=== PATIENT | female | born 1990 | race Caucasian/White ===

== ENCOUNTER 2016-11-01 17:18 | Outpatient (CLI) | payer OTHER ==
[~2016-11-01] VITALS: Ht 154.9 cm; Wt 54.7 kg
[~2016-11-01 17:18] MED LIST: PREN1TAB49
[2016-11-01 17:56] VITALS: BP 99/57; PULSE 88; RESP 18; Ht 154.9 cm; Wt 54.7 kg
[2016-11-01 19:39] LABS: BASOPHILS % 0.3 % (0.0-2.0); EOSINOPHILS # 0.1 10^3/ul (0.0-0.5); EOSINOPHILS % 0.8 % (0.0-7.0); HEMATOCRIT 31.7 % (37.0-47.0); HEMOGLOBIN 10.4 g/dl (12.0-16.0); LYMPHOCYTES # 1.8 10^3/ul (0.8-2.9); LYMPHOCYTES % 20.5 % (15.0-51.0); MEAN CORPUSCULAR HGB CONC 32.8 g/dl (32.0-37.0); MEAN CORPUSCULAR VOLUME 94.3 fl (82.0-101.0); MONOCYTE # 0.8 10^3/ul (0.3-0.9); MONOCYTES % 8.6 % (0.0-11.0); NEUTROPHIL # 6.1 10^3/ul (1.6-7.5); NEUTROPHILS % 69.2 % (39.0-77.0); PLATELET COUNT 253 10^3/UL (140-415); RED BLOOD COUNT 3.36 10^6/ul (4.20-5.40); WHITE BLOOD COUNT 8.8 10^3/ul (4.8-10.8)
--- NOTE | 2016-11-01 20:03 | RADRPT ---
PROCEDURE: US OB. CLINICAL INDICATION: Contractions. TECHNIQUE: Multiple sonographic images of the pelvis were obtained. Transabdominal imaging only wa s performed. The images were reviewed on a PACS workstation. COMPARISON: Exam dated 09/15/2015. FINDINGS: The cervix is closed with a length of 3.8 cm. There is a single viable intrauterine gestation. Cardiac activity is present with a heart rate of 1 46 bpm. There is a cephalic presentation. Measurements were made in order to determine age. The results are as follows: BPD = 5.9 cm HC = 20.88 cm AC = 19.47 cm FL = 4.03 cm Estimated gestational age of approximately 23 weeks 4 days. The estimated date of delivery is 02/24/2017. The EFW = 612.57 g, at the 37th percentile. The placenta is posterior, grade 2. There is no evidence for an abruption or placenta previa. There is a normal amount of amniotic fluid with a MVP of 7.1 cm. IMPRESSION: 1. Single viable intrauterine gestation of approximately 23 weeks 4 days. 2. The estimated date of delivery is 02/24/2017. RPTAT: HLBP .Kristopher Goncalves MD, Date Time Electronically viewed and signed by .Kristopher Goncalves MD, MD on 11/01/2016 20:03 .P/
[2016-11-01 20:11] LABS: ADD UMIC YES; UR ASCORBIC ACID 40 mg/dL (NEGATIVE); UR BILIRUBIN (Dip) NEGATIVE (NEGATIVE); UR BLOOD (Dip) NEGATIVE (NEGATIVE); UR CLARITY SLIGHTLY CLOUDY (CLEAR); UR COLOR YELLOW (YELLOW); UR GLUCOSE (Dip) NEGATIVE (NEGATIVE); UR KETONES (Dip) NEGATIVE (NEGATIVE); UR LEUKOCYTE ESTERASE (Dip) TRACE Leu/ul (NEGATIVE); UR MUCUS FEW /HPF (NONE SEEN); UR NITRITE (Dip) NEGATIVE (NEGATIVE); UR RBC 2 /HPF (0-5); UR SPECIFIC GRAVITY (Dip) 1.032 (1.003-1.030); UR SQUAMOUS EPITHELIAL CELL FEW /HPF (FEW); UR TOTAL PROTEIN (Dip) NEGATIVE (NEGATIVE); UR UROBILINOGEN (Dip) 1+ mg/dL (NEGATIVE)
--- NOTE | 2016-11-01 20:44 | PN ---
Triage Information Date/Time Reason for visit: Abd/pelvic pain Weeks of Gestation 23 weeks /Para Diabetes: none Hypertention: none Objective Vital Signs Date Time Temp Pulse Resp B/P Pulse Ox O2 Delivery O2 Flow Rate FiO2 11/01/16 17:56 98.0 88 18 99/57 98 Room Air Heart Rate: 120's Contractions: None Results/Medications Result Diagram: 11/01/16 1908 Results 24 hrs Laboratory Tests Test 11/01/16 18:50 11/01/16 19:08 Urine Color YELLOW Urine Clarity SLIGHTLY CLOUDY A Urine pH 5.0 Urine Specific [place] 1.032 H Urine Ketones NEGATIVE Urine Nitrite NEGATIVE Urine Bilirubin NEGATIVE Urine Urobilinogen 1+ H Urine Leukocyte Esterase TRACE A Urine Microscopic RBC 2 Urine Microscopic WBC 7 H Urine Squamous Epithelial Cells FEW Urine Mucus FEW A Urine Hemoglobin NEGATIVE Urine Glucose NEGATIVE Urine Total Protein NEGATIVE White Blood Count 8.8 Red Blood Count 3.36 L Hemoglobin 10.4 L Hematocrit 31.7 L Mean Corpuscular Volume 94.3 Mean Corpuscular Hemoglobin 31.0 Mean Corpuscular Hemoglobin Concent 32.8 Red Cell Distribution Width 13.0 Platelet Count 253 Mean Platelet Volume 9.0 # Neutrophils % 69.2 Lymphocytes % 20.5 Monocytes % 8.6 Eosinophils % 0.8 Basophils % 0.3 Nucleated Red Blood Cells % 0.0 Neutrophils # 6.1 Lymphocytes # 1.8 Monocytes # 0.8 Eosinophils # 0.1 Basophils # 0.0 Nucleated Red Blood Cells # 0.0 Imaging Results Cervical length normal Disposition: Discharge Assessment/Plan After rest patient feels better. D/C home. LIU MOE MD Nov 01, 2016 20:44
--- NOTE | 2016-11-01 20:47 | TRIAGE ---
OB Triage Datetime Report Generated by CPN: 11/01/2016 20:47 Datetime: 11/01/2016 19:02 Labor Evaluation Monitor Mode: External Resting Tone [place]: Relaxed Datetime: 11/01/2016 18:02 Labor Evaluation Monitor Mode: External Resting Tone [place]: Relaxed Datetime: 11/01/2016 17:51 Stage of : OB Triage EGA: 23.5 Maternal Assessment Level of Consciousness: Fully Conscious DTR's/Clonus: DTRs 2+; No Clonus Headache: Denies Blurred Vision: No Respiratory Effort: Unlabored; Regular Rhythm; Equal Expansion Breath Sounds, Left: Clear and Equal Breath Sounds, Right: Clear and Equal Nausea/Vomiting: Denies RUQ Epigastric Pain: Denies Lower Extremities Edema: None Degree: None Upper Extremities Edema: None Degree: None Facial Edema: None Temperature Route: Axillary Fall Risk Assessment History of Falling: (0) No Secondary Diagnosis: (0) No Ambulatory Aid: (0) Bedrest/Nurse Assist IV Therapy: (0) No Gait: (0) Normal/Bedrest/Immobile Mental Status: (0) Oriented to Own Ability Fall Score: 0 Fall Risk Score Definition: No Risk: No action required Comment: presented to [facility] complaining of lower abd pain and back apin and voiced that everytime her baby moves gives her pian on her umbilical area Labor Evaluation Monitor Mode: External Heart Rate FHR Baseline Rate: 150 Monitor Mode: External US Pain Assessment Pain Scale: 6 Pain Presence: Intermittent Pain Type: Cramping Pain Location: Abdomen Datetime: 11/01/2016 17:49 Time of Arrival: 11/01/2016 17:05 Arrived By: Ambulatory Arrived From: Home Chief Complaint: pain on lower abd and lowr back, pain on umbilical area when baby moves Movement: Present Contractions: Denies/Absent Time Contractions Began: 11/01/2016 10:00 Rupture of Membranes: Denies Vaginal Discharge: Denies Recent Sexual Intercouse: Denies Abdominal Trauma: Not Applicable Patient Complaints: None Time Provider Notified: 11/01/2016 18:25 Provider Notified: Delshmarcos Initial Plan: efm, OB US: EFW, CL, KATHRYN, CBC, UA Datetime: 11/01/2016 17:33 Heart Rate FHR Baseline Rate: 135 Monitor Mode: Doppler
== END 2016-11-01 20:45 | disposition home or self-care (01) ==
LOC: OBT 17:18 → L-D 17:20 → OBT 20:45
PROVIDERS: ATTEND Obstetrics & Gynecology
DX: O26.892 Other specified pregnancy related conditions, second trimester (principal); Z3A.23 23 weeks gestation of pregnancy; R10.2 Pelvic and perineal pain
CPT/HCPCS: 76815; 76817; 81001; 85025; G0463

== ENCOUNTER 2016-11-14 20:43 | Outpatient (CLI) | payer OTHER ==
[~2016-11-14] VITALS: Ht 154.9 cm; Wt 55.5 kg
[2016-11-14 22:07] VITALS: Ht 154.9 cm; Wt 55.5 kg
[2016-11-14 22:08] VITALS: BP 91/54; PULSE 75; RESP 18
--- NOTE | 2016-11-14 22:55 | RADRPT ---
PROCEDURE: CERVICAL LENGTH ULTRASOUND CLINICAL INDICATION: labor at 25-week gestational age. TECHNIQUE: Trans-vaginal imaging of the cervical canal was performed utilizing jaimes-scale imaging. Sagittal and transverse images were obtained. Trans-abdominal images were also obtained. The jovanni ges were reviewed on a PACS workstation. COMPARISON: None. FINDINGS: There is a single live intrauterine . There is no placenta previa. The cervix is closed with a length of 3.9 cm. IMPRESSION: 1. Cervical length is 3.9 cm. RPTAT: QQ .Maik Reeder MD, MD Date Time Electronically viewed and signed by .Maik Reeder MD, on 11/14/2016 22:55 .R/
[2016-11-14 23:15] LABS: BASOPHIL # 0.1 10^3/ul (0.0-0.1); BASOPHILS % 0.5 % (0.0-2.0); EOSINOPHILS # 0.1 10^3/ul (0.0-0.5); EOSINOPHILS % 1.2 % (0.0-7.0); HEMATOCRIT 33.2 % (37.0-47.0); HEMOGLOBIN 11.2 g/dl (12.0-16.0); LYMPHOCYTES # 2.4 10^3/ul (0.8-2.9); LYMPHOCYTES % 24.1 % (15.0-51.0); MEAN CORPUSCULAR HGB CONC 33.7 g/dl (32.0-37.0); MEAN CORPUSCULAR VOLUME 94.9 fl (82.0-101.0); MEAN PLATELET VOLUME 8.8 fl (7.4-10.4); MONOCYTE # 0.7 10^3/ul (0.3-0.9); MONOCYTES % 6.9 % (0.0-11.0); NEUTROPHIL # 6.8 10^3/ul (1.6-7.5); NEUTROPHILS % 66.9 % (39.0-77.0); PLATELET COUNT 212 10^3/UL (140-415); RED CELL DISTRIBUTION WIDTH 13.8 % (11.5-14.5); WHITE BLOOD COUNT 10.1 10^3/ul (4.8-10.8)
[2016-11-14 23:42] LABS: ADD UMIC YES; UR ASCORBIC ACID NEGATIVE (NEGATIVE); UR BILIRUBIN (Dip) NEGATIVE (NEGATIVE); UR BLOOD (Dip) NEGATIVE (NEGATIVE); UR CLARITY SLIGHTLY CLOUDY (CLEAR); UR COLOR YELLOW (YELLOW); UR GLUCOSE (Dip) NEGATIVE (NEGATIVE); UR KETONES (Dip) NEGATIVE (NEGATIVE); UR LEUKOCYTE ESTERASE (Dip) 1+ Leu/ul (NEGATIVE); UR NITRITE (Dip) NEGATIVE (NEGATIVE); UR RBC 1 /HPF (0-5); UR SPECIFIC GRAVITY (Dip) 1.015 (1.003-1.030); UR SQUAMOUS EPITHELIAL CELL FEW /HPF (FEW); UR TOTAL PROTEIN (Dip) NEGATIVE (NEGATIVE); UR UROBILINOGEN (Dip) NEGATIVE (NEGATIVE)
[2016-11-15 00:46] LABS: BARBITURATES Negative (NEGATIVE); BENZODIAZEPINES Negative (NEGATIVE); CANNABINOIDS Negative (NEGATIVE); COCAINE Negative (NEGATIVE); OPIATES Negative (NEGATIVE)
--- NOTE | 2016-11-15 01:02 | PN ---
Triage Information Date/Time Reason for visit: Abd/pelvic pain Weeks of Gestation 25 weeks /Para Diabetes: none Hypertention: none Objective Vital Signs Date Time Temp Pulse Resp B/P Pulse Ox O2 Delivery O2 Flow Rate FiO2 11/14/16 22:08 98.4 75 18 91/54 Room Air Heart Rate: 120's Heart Rate Comments Appropriate for GA Contractions: None Results/Medications Result Diagram: 11/14/16 2305 Results 24 hrs Laboratory Tests Test 11/14/16 21:30 11/14/16 23:05 Urine Color YELLOW Urine Clarity SLIGHTLY CLOUDY A Urine pH 7.0 Urine Specific [place] 1.015 Urine Ketones NEGATIVE Urine Nitrite NEGATIVE Urine Bilirubin NEGATIVE Urine Urobilinogen NEGATIVE Urine Leukocyte Esterase 1+ H Urine Microscopic RBC 1 Urine Microscopic WBC 3 Urine Squamous Epithelial Cells FEW Urine Hemoglobin NEGATIVE Urine Glucose NEGATIVE Urine Total Protein NEGATIVE Urine Opiates Screen Negative Urine Barbiturates Negative Urine Amphetamines Screen Negative Urine Benzodiazepines Screen Negative Urine Cocaine Screen Negative Urine Cannabinoids Negative White Blood Count 10.1 Red Blood Count 3.50 L Hemoglobin 11.2 L Hematocrit 33.2 L Mean Corpuscular Volume 94.9 Mean Corpuscular Hemoglobin 32.0 Mean Corpuscular Hemoglobin Concent 33.7 Red Cell Distribution Width 13.8 Platelet Count 212 Mean Platelet Volume 8.8 Neutrophils % 66.9 Lymphocytes % 24.1 Monocytes % 6.9 Eosinophils % 1.2 Basophils % 0.5 Nucleated Red Blood Cells % 0.0 Neutrophils # 6.8 Lymphocytes # 2.4 Monocytes # 0.7 Eosinophils # 0.1 Basophils # 0.1 Nucleated Red Blood Cells # 0.0 Imaging Results Cervical length normal Disposition: Discharge Assessment/Plan No sign of labor. LIU MOE MD Nov 15, 2016 01:02
--- NOTE | 2016-11-15 02:18 | TRIAGE ---
OB Triage Datetime Report Generated by CPN: 11/15/2016 02:18 Datetime: 11/15/2016 01:07 Stage of : OB Triage Labor Evaluation Frequency: 0 Monitor Mode: External Pattern: Normal: <= 5 Contractions in 10 Minutes Resting Tone [place]: Relaxed Datetime: 11/15/2016 01:02 Stage of : OB Triage Datetime: 11/15/2016 00:10 Stage of : OB Triage Labor Evaluation Frequency: X1 Monitor Mode: External Duration (sec)2399: 50 Quality: Mild Pattern: Normal: <= 5 Contractions in 10 Minutes Resting Tone [place]: Relaxed Heart Rate FHR Baseline Rate: 130 Monitor Mode: External US Variability: Moderate 6-25 bpm Accelerations: 15X15 Decelerations: None Category: Category I Pain Assessment Pain Scale: 7 Pain Presence: Constant Pain Type: Burning; Cramping Pain Location: Abdomen; Back Pain Goal: 3 Pain Relief Measures: Comfort Measures Datetime: 11/14/2016 23:10 Stage of : OB Triage Labor Evaluation Frequency: 0 Monitor Mode: External Pattern: Normal: <= 5 Contractions in 10 Minutes Resting Tone [place]: Relaxed Pain Assessment Pain Scale: 7 Pain Presence: Constant Pain Type: Burning; Cramping Pain Location: Abdomen; Back Pain Goal: 3 Pain Relief Measures: Comfort Measures Datetime: 11/14/2016 22:17 Assessment Type: Triage Maternal Assessment Level of Consciousness: Fully Conscious DTR's/Clonus: DTRs 2+; No Clonus Headache: Denies Blurred Vision: No Respiratory Effort: Unlabored; Regular Rhythm; Equal Expansion Nausea/Vomiting: Denies RUQ Epigastric Pain: Denies Lower Extremities Edema: None Upper Extremities Edema: None Facial Edema: None Fall Risk Assessment History of Falling: (0) No Secondary Diagnosis: (0) No Ambulatory Aid: (0) Bedrest/Nurse Assist IV Therapy: (0) No Gait: (0) Normal/Bedrest/Immobile Mental Status: (0) Oriented to Own Ability Fall Score: 0 Fall Risk Score Definition: No Risk: No action required Datetime: 11/14/2016 22:15 Time of Arrival: 11/14/2016 20:30 EGA: 25.4 Arrived By: Wheelchair Arrived From: Home Chief Complaint: ABD PAIN, BACK PAIN, PAIN ON URINATION, LOSING WEIGHT Movement: Present Rupture of Membranes: Denies Vaginal Discharge: Denies Recent Sexual Intercouse: Denies Patient Complaints: None Additional Patient Complaints: PT. IN [facility], STATED NOT FEEDING HER ENOUGH Time Provider Notified: 11/14/2016 22:11 Provider Notified: DELSHAD Initial Plan: CBC, UA, TOX SCREEN, CERVICAL LENGTH Datetime: 11/14/2016 22:10 Stage of : OB Triage Labor Evaluation Frequency: 0 Monitor Mode: External Pattern: Normal: <= 5 Contractions in 10 Minutes Resting Tone [place]: Relaxed Pain Assessment Pain Scale: 7 Pain Presence: Constant Pain Type: Burning; Cramping Pain Location: Abdomen; Back Pain Goal: 3 Pain Relief Measures: Comfort Measures Datetime: 11/14/2016 21:47 Monitor Mode: Doppler Datetime: 11/01/2016 20:00 Monitor Mode: External Resting Tone [place]: Relaxed Datetime: 11/01/2016 17:51 EGA: 23.5 Fall Score: 0 Fall Risk Score Definition: No Risk: No action required
== END 2016-11-15 01:17 | disposition home or self-care (01) ==
LOC: OBT 20:43 → L-D 20:46 → OBT 11-15 01:17
PROVIDERS: ATTEND Obstetrics & Gynecology
DX: O26.892 Other specified pregnancy related conditions, second trimester (principal); Z3A.25 25 weeks gestation of pregnancy; R10.9 Unspecified abdominal pain; M54.9 Dorsalgia, unspecified
CPT/HCPCS: 76817; 80307; 81001; 85025; G0463

== ENCOUNTER 2017-02-13 21:29 | Outpatient (CLI) | payer OTHER ==
[~2017-02-13] VITALS: Ht 154.9 cm; Wt 61.9 kg
[2017-02-13 22:04] VITALS: BP 93/64; PULSE 111; RESP 18
[2017-02-13] MEDS ORDERED: FERR134T PO (22:06)
--- NOTE | 2017-02-13 23:52 | RADRPT ---
PROCEDURE: OB ultrasound for biophysical profile CLINICAL INDICATION: decelerations.. TECHNIQUE: Multiple sonographic images of the gravid uterus performed. The images were reviewed on a PACS workstation. COMPARISON: 11/01/2016 FINDINGS: A single live intrauterine is identified with heart rate of 146 bpm. Fet us is in a cephalic presentation. Placenta is located fundal. Biophysical profile: breathing movement = 2/2 tone = 2/2 motion = 2/2 KATHRYN = 2/2 KATHRYN = 13.7 cm. IMPRESSION: 1. Single live intrauterine gestation. 2. Biophysical profile = 8/8. 3. KATHRYN = 13.7 cm. RPTAT: HMVK .Lars Reagan MD, Date Time Electronically viewed and signed by .Lars Reagan MD, MD on 02/13/2017 23:51 .K/
--- NOTE | 2017-02-14 02:04 | PN ---
Triage Information Date/Time Feb 14, 2017 Reason for visit: Uterine contractions Weeks of Gestation 38w 5d /Para 6/5 Diabetes: none Hypertention: none Additional information C/O back pain. Denies leaking or bleeding. Reports good movement. PMHx: none. PSHx: none. NKDA. Objective Vital Signs Date Time Temp Pulse Resp B/P Pulse Ox O2 Delivery O2 Flow Rate FiO2 02/13/17 22:04 98.8 111 18 93/64 Room Air Heart Rate: 140's Heart Rate Comments Accels to 170 bpm. No decels. Contractions: 6-10 Minutes Apart Exam Thick/1/-3. No change after 2 hours. Results/Medications Imaging Results BPP 8/8. KATHRYN 13.7 cm. VTX. Disposition: Discharge Assessment/Plan A: IUP at 38w 5d. False labor. P: D/C home with labor precautions. ALEXANDR ALVAREZ MD Feb 14, 2017 02:04
--- NOTE | 2017-02-14 02:23 | TRIAGE ---
OB Triage Datetime Report Generated by CPN: 02/14/2017 02:23 Datetime: 02/14/2017 01:55 Stage of : OB Triage Monitor Mode: External Quality: Mild Pattern: Normal: <= 5 Contractions in 10 Minutes Resting Tone [place]: Relaxed Heart Rate FHR Baseline Rate: 140 Monitor Mode: External US FHR Baseline Changes: No Baseline Change Variability: Moderate 6-25 bpm Accelerations: 15X15 Decelerations: None Category: Category I Datetime: 02/14/2017 01:29 Stage of : OB Triage Labor Evaluation Frequency: 3-5 Monitor Mode: External Quality: Mild Pattern: Normal: <= 5 Contractions in 10 Minutes Resting Tone [place]: Relaxed Heart Rate FHR Baseline Rate: 140 Monitor Mode: External US FHR Baseline Changes: No Baseline Change Variability: Moderate 6-25 bpm Accelerations: 15X15 Datetime: 02/14/2017 00:40 Stage of : OB Triage Datetime: 02/14/2017 00:35 Stage of : OB Triage Datetime: 02/14/2017 00:04 Stage of : OB Triage Labor Evaluation Frequency: 2-7 Monitor Mode: External Quality: Mild Pattern: Normal: <= 5 Contractions in 10 Minutes Resting Tone [place]: Relaxed Heart Rate FHR Baseline Rate: 140 Monitor Mode: External US FHR Baseline Changes: No Baseline Change Variability: Moderate 6-25 bpm Accelerations: 15X15 Decelerations: Variable Vaginal Exam Dilatation (cms): 1.0 Station: -3 Exam By: E Obie Membrane Status: Intact Vaginal Bleeding: None Cervix, Consistency: Soft Cervix, Position: Posterior Datetime: 02/13/2017 23:27 Stage of : OB Triage Monitor Mode: External Quality: Mild Pattern: Normal: <= 5 Contractions in 10 Minutes Resting Tone [place]: Relaxed Heart Rate FHR Baseline Rate: 145 Monitor Mode: External US Variability: Moderate 6-25 bpm Accelerations: 15X15 Decelerations: None Category: Category I Datetime: 02/13/2017 22:45 Stage of : OB Triage Monitor Mode: External Quality: Mild Pattern: Normal: <= 5 Contractions in 10 Minutes Resting Tone [place]: Relaxed Heart Rate FHR Baseline Rate: 150 Monitor Mode: External US FHR Baseline Changes: No Baseline Change Variability: Moderate 6-25 bpm Accelerations: 15X15 Decelerations: Variable Category: Category II Datetime: 02/13/2017 22:22 Time of Arrival: 02/13/2017 21:27 EGA: 38.4 Arrived By: Wheelchair Arrived From: Home Chief Complaint: w/ c/o back pain and cramping Movement: Present Contractions: Irregular Time Contractions Began: 02/13/2017 15:00 Contractions: q10 Rupture of Membranes: Denies Vaginal Bleeding: None Vaginal Discharge: Denies Recent Sexual Intercouse: Denies Abdominal Trauma: Not Applicable Patient Complaints: Contractions; Back Pain Time Provider Notified: 02/13/2017 22:45 Provider Notified: Dr Lezama Initial Plan: EFN,SVE Datetime: 02/13/2017 22:20 Stage of : OB Triage Monitor Mode: External Duration (sec)2399: 20-40sec Quality: Mild Pattern: Normal: <= 5 Contractions in 10 Minutes Resting Tone [place]: Relaxed Heart Rate FHR Baseline Rate: 145 Monitor Mode: External US FHR Baseline Changes: No Baseline Change Variability: Moderate 6-25 bpm Accelerations: 15X15 Decelerations: Variable Category: Category II Vaginal Exam Dilatation (cms): 1.0 Effacement (%): 30 Station: -3 Exam By: E Obie Vaginal Bleeding: None Cervix, Consistency: Soft Cervix, Position: Posterior Datetime: 02/13/2017 21:50 Stage of : OB Triage Maternal Assessment Level of Consciousness: Fully Conscious Headache: Denies Blurred Vision: No Nausea/Vomiting: Denies RUQ Epigastric Pain: Denies Facial Edema: None Monitor Mode: External Resting Tone [place]: Relaxed Heart Rate FHR Baseline Rate: 150 Monitor Mode: External US Pain Assessment Pain Scale: 8 Pain Presence: Intermittent Pain Type: Cramping; Ache Pain Location: Abdomen; Back Datetime: 11/14/2016 22:17 Fall Risk Assessment Fall Score: 0 Fall Risk Score Definition: No Risk: No action required Datetime: 11/14/2016 22:15 EGA: 25.4 Datetime: 11/01/2016 17:51 EGA: 23.5 Fall Risk Assessment Fall Score: 0 Fall Risk Score Definition: No Risk: No action required
== END 2017-02-14 02:06 | disposition home or self-care (01) ==
LOC: OBT 21:29 → L-D 21:30 → OBT 02-14 02:06
PROVIDERS: ATTEND Obstetrics & Gynecology
DX: O62.9 Abnormality of forces of labor, unspecified (principal); Z3A.38 38 weeks gestation of pregnancy
CPT/HCPCS: 76818

== ENCOUNTER 2017-03-01 13:06 | Inpatient (IN) | END 2017-03-03 15:00 | disposition home or self-care (01) | DRG 775 ==

== ENCOUNTER 2018-07-07 08:36 | Outpatient (CLI) | payer OTHER ==
[~2018-07-07] VITALS: Ht 154.9 cm; Wt 59.5 kg
[2018-07-07 08:53] VITALS: Ht 154.9 cm; Wt 59.5 kg
--- NOTE | 2018-07-07 10:02 | PN ---
Triage Information Date/Time Reason for visit: Uterine contractions Weeks of Gestation 36+ /Para n/a Diabetes: none Hypertention: none Objective Heart Rate: 140's Contractions: >10 Minutes Apart Disposition: Discharge Assessment/Plan Cx closed Bpp 11/26 Precautions discussed Questions answered Follow up with provider REJI STREETER M.D. July 07, 2018 10:02
== END 2018-07-07 10:04 | disposition home or self-care (01) ==
LOC: OBT 08:36 → L-D 08:38 → OBT 10:04
PROVIDERS: ATTEND Obstetrics & Gynecology
DX: O62.9 Abnormality of forces of labor, unspecified (principal); Z3A.36 36 weeks gestation of pregnancy
CPT/HCPCS: 76818; Z7500; G0463

== ENCOUNTER 2018-07-08 02:12 | Inpatient (IN) | payer OTHER ==
[~2018-07-08] VITALS: Ht 154.9 cm; Wt 59.5 kg
[2018-07-08 02:21] VITALS: Ht 154.9 cm; Wt 59.5 kg
[2018-07-08] MEDS ORDERED: LACTATED RINGER'S 1,000 ML IV PRN (02:22)
[2018-07-08] MEDS ORDERED: LACTATED RINGER'S 1,000 ML IV SCH (02:22)
[2018-07-08] MEDS ORDERED: LIDOCAINE 1% (MPF) 30 ML INJ ONE (02:25)
[2018-07-08] MEDS ORDERED: AMPICILLIN 2 GM/NS (PMX) 100 ML ONE (02:25)
[2018-07-08] MEDS ORDERED: AMPICILLIN 2 GM/NS (PMX) 100 ML IV ONE (02:30)
[2018-07-08] MEDS ORDERED: LIDOCAINE 1% (MPF) 30 ML INJ INJ PRN (02:30)
[2018-07-08] MEDS ORDERED: BUTORPHANOL 2 MG INJ IV PRN (02:30)
[2018-07-08] MEDS ORDERED: MINERAL OIL LIGHT 10 ML VIAL TOP PRN (02:30)
[2018-07-08] MEDS ORDERED: OXYTOCIN 30 UNITS/LR 500 ML IV PRN ×2 (02:30→05:30)
[2018-07-08] MEDS ORDERED: METHYLERGONOVINE 0.2 MG INJ IM PRN ×2 (02:30→05:30)
[2018-07-08] MEDS ORDERED: CARBOPROST 250 MCG INJ IM PRN ×2 (02:30→05:30)
[2018-07-08] MEDS ORDERED: MISOPROSTOL 200 MCG TAB PR PRN ×2 (02:30→05:30)
[2018-07-08] MEDS ORDERED: OXYTOCIN 30 UNITS/LR 500 ML IV SCH ×2 (02:30)
--- NOTE | 2018-07-08 02:54 | HP ---
Date/Time of Note Date/Time of Note DATE: 07/08/18 TIME: 02:52 OB - History Hx of Present Chief Complaint: contractions Estimated Due Date: Jul 29, 2018 : 7 Para: 6 Spontaneous : 0 Therapeutic : 0 Care: Limited Care Obstetrical Complications: Gestational Diabetes Medical Complications: None Past Family/Social History * Past Medical, Surgical, Family and Obstetric Histories reviewed from chart. GBS Status: Unknown OB Admission Exam Physical Exam HEENT: WNL Heart: Rhythm Normal Lungs: Clear, Equal Abdomen: WNL Extremities: Normal Reflexes: Normal Cervical Dilatation: 8cm Effacement: 100% Station: -1 Membranes: Intact Heart Rate: 130's Accelerations: Accelerations Present Decelerations: No Decelerations Varibility: Moderate Last 72 hourBlood Glucose Bedside Glucose - 72 Hours Test 07/08/18 02:47 Bedside Glucose 84 mg/dL (70-220) OB Assessment/Plan Reason for admission: active labor Plan: Expectant Management LIU MOE MD July 08, 2018 02:54
--- NOTE | 2018-07-08 02:59 | TRIAGE ---
OB Triage Datetime Report Generated by CPN: 07/08/2018 02:59 Datetime: 07/08/2018 02:46 Assessment Type: Ongoing Assessment Time of Arrival: 07/08/2018 02:10 EGA: 37.0 Arrived By: Ambulance Arrived From: Home Chief Complaint: brought by ambulance w/ c/o ucs and ?leaking sm amt fluid x 2 hrs. Sm amt blo od noted on peripad Movement: Present Contractions: Regular Time Contractions Began: 07/07/2018 22:00 Contractions: q3 Rupture of Membranes: Unsure Vaginal Bleeding: Scant Vaginal Discharge: Denies Recent Sexual Intercouse: Denies Abdominal Trauma: Not Applicable Patient Complaints: Contractions Time Provider Notified: 07/08/2018 02:34 Provider Notified: Dr Lezama Initial Plan: EFM,SVE Maternal Assessment Level of Consciousness: Fully Conscious DTR's/Clonus: DTRs 2+; No Clonus Headache: Denies Blurred Vision: No Respiratory Effort: Unlabored; Regular Rhythm; Equal Expansion Breath Sounds, Left: Clear and Equal Breath Sounds, Right: Clear and Equal Nausea/Vomiting: Denies RUQ Epigastric Pain: Denies Lower Extremities Edema: None Upper Extremities Edema: None Facial Edema: None Fall Risk Assessment History of Falling: (0) No Secondary Diagnosis: (0) No Ambulatory Aid: (0) Bedrest/Nurse Assist IV Therapy: (20) Yes Gait: (0) Normal/Bedrest/Immobile Mental Status: (0) Oriented to Own Ability Fall Score: 20 Fall Risk Score Definition: No Risk: No action required Pain Assessment Pain Scale: 9 Pain Presence: Intermittent Pain Type: Contraction Pain Location: Abdomen Membrane Status: Bulging Datetime: 07/08/2018 02:41 Time of Arrival: 07/08/2018 02:20 EGA: 37.0 Arrived By: Stretcher; Ambulance Datetime: 07/08/2018 02:26 Stage of : Labor Heart Rate FHR Baseline Rate: 135 Monitor Mode: External US Vaginal Exam Dilatation (cms): 8.0 Station: 0 Exam By: E Obie Membrane Status: Bulging Vaginal Bleeding: Heavy Cervix, Consistency: Soft Cervix, Position: Anterior Presentation 'A': Cephalic Datetime: 07/08/2018 02:15 Stage of : OB Triage Maternal Assessment Level of Consciousness: Fully Conscious Headache: Denies Blurred Vision: No Respiratory Effort: Unlabored Nausea/Vomiting: Denies RUQ Epigastric Pain: Denies Facial Edema: None Monitor Mode: External Resting Tone [place]: Relaxed Heart Rate FHR Baseline Rate: 140 Monitor Mode: External US Pain Assessment Pain Scale: 8 Pain Presence: Intermittent Pain Type: Contraction; Pressure Pain Location: Abdomen Vaginal Exam Dilatation (cms): 8.0 Effacement (%): 80 Station: -1 Exam By: Magdi Ragland Membrane Status: Bulging Amniotic Fluid Odor: None Vaginal Bleeding: Moderate Cervix, Consistency: Soft Cervix, Position: Anterior Presentation 'A': Cephalic Datetime: 07/07/2018 09:53 Stage of : OB Triage Maternal Assessment Level of Consciousness: Fully Conscious DTR's/Clonus: DTRs 1+ Headache: Denies Breath Sounds, Left: Clear and Equal Breath Sounds, Right: Clear and Equal Nausea/Vomiting: Denies RUQ Epigastric Pain: Denies Labor Evaluation Frequency: X4 Monitor Mode: External Duration (sec)2399: 40-120 Quality: Mild Pattern: Normal: <= 5 Contractions in 10 Minutes Resting Tone [place]: Relaxed Heart Rate FHR Baseline Rate: 135 Monitor Mode: External US Variability: Moderate 6-25 bpm Accelerations: 15X15 Decelerations: None Category: Category I Pain Assessment Pain Scale: 5 Pain Presence: Intermittent Pain Type: Cramping Pain Location: Back Pain Goal: 3 Membrane Status: Intact Datetime: 07/07/2018 09:06 Maternal Assessment Level of Consciousness: Fully Conscious DTR's/Clonus: DTRs 1+ Headache: Denies Blurred Vision: No Respiratory Effort: Unlabored Breath Sounds, Left: Clear and Equal Breath Sounds, Right: Clear and Equal Nausea/Vomiting: Denies RUQ Epigastric Pain: Denies Facial Edema: None Labor Evaluation Frequency: X1 Monitor Mode: External Duration (sec)2399: 90 Quality: Mild Pattern: Normal: <= 5 Contractions in 10 Minutes Resting Tone [place]: Relaxed Heart Rate FHR Baseline Rate: 135 Monitor Mode: External US Variability: Moderate 6-25 bpm Accelerations: 15X15 Decelerations: None Category: Category I Pain Assessment Pain Scale: 5 Pain Presence: Intermittent Pain Type: Cramping Pain Location: Back Pain Goal: 3 Membrane Status: Intact Datetime: 07/07/2018 08:43 Vaginal Exam Dilatation (cms): 0.0 Effacement (%): 0 Station: -3 Exam By: NATALEE DONOVAN Vaginal Bleeding: None Cervix, Consistency: Firm Cervix, Position: Posterior
--- NOTE | 2018-07-08 03:51 | LDN ---
Date/Time of Note Date/Time of Note DATE: 07/08/18 TIME: 03:49 Delivery Summary Weeks of Gestation 37 weeks Placenta Delivered: Spontaneously Meconium: none Episiotomy: No Anesthesia type: None Estimated blood loss: 200 Sponge & Needle done & correct: Yes All needle counts correct: Yes Any foreign bodies felt in the: No Infant Delivery Information Sex Infant Sex: female Apgars 1 Minute: 8 5 Minute: 8 Suctioning Nose & mouth suctioned at coco: No Umbilical Cord Umbilical cord with: 3 Vessels Cord presentations: no nuchal cord Cord Blood was obtained: Yes Mother & Baby Disposition Disposition Mom & Baby to Maternity; Good: Yes LIU MOE MD July 08, 2018 03:51
[2018-07-08 05:00] VITALS: BP 141/83; PULSE 65; RESP 19
[2018-07-08] MEDS: LACTATED RINGER'S 1,000 ML IV* SCH ×3 (05:06→21:06)
[2018-07-08] MEDS ORDERED: HYDROCODONE/APAP (5/325) TAB PO PRN (05:30)
[2018-07-08] MEDS ORDERED: BENZOCAINE 20% 56 ML SPRAY TOP PRN (05:30)
[2018-07-08] MEDS ORDERED: ACETAMINOPHEN 325 MG TAB PO PRN (05:30)
[2018-07-08] MEDS ORDERED: DIBUCAINE 1% 30 GM OINT TOP PRN (05:30)
[2018-07-08] MEDS ORDERED: WITCH HAZEL/GLYCERIN PAD PR PRN (05:30)
[2018-07-08] MEDS: IBUPROFEN 600 MG TAB PO SCH ×4 (05:47→23:39)
[2018-07-08 06:00] VITALS: BP 132/86; PULSE 60; RESP 18
[2018-07-08] MEDS ORDERED: AMPICILLIN 1 GM/NS (PMX) 50 ML IV SCH (06:30)
[2018-07-08 08:20] VITALS: BP 117/71; PULSE 60; RESP 19
[2018-07-08] MEDS: SENNA/DOCUSATE NA (8.6MG/50MG) TAB PO SCH ×2 (09:37→21:36)
[2018-07-08] MEDS: FERROUS SULFATE (EC) 325 MG TAB PO SCH ×3 (09:37→21:36)
[2018-07-08 11:39] VITALS: BP 94/58; PULSE 62; RESP 17
[2018-07-08 15:30] VITALS: BP 100/61; PULSE 58; RESP 16
[2018-07-08 19:30] VITALS: BP 92/62; PULSE 68; RESP 20
[2018-07-09 03:30] VITALS: BP 113/71; PULSE 62; RESP 18
[2018-07-09] MEDS: LACTATED RINGER'S 1,000 ML IV* SCH ×3 (05:06→22:49)
[2018-07-09] MEDS: IBUPROFEN 600 MG TAB PO SCH ×4 (05:38→23:36)
[2018-07-09 08:30] VITALS: BP 104/60; PULSE 85; RESP 17
[2018-07-09] MEDS: FERROUS SULFATE (EC) 325 MG TAB PO SCH ×3 (09:48→23:36)
[2018-07-09] MEDS: SENNA/DOCUSATE NA (8.6MG/50MG) TAB PO SCH ×2 (09:48→23:36)
[2018-07-09 15:47] VITALS: BP 114/80; PULSE 69; RESP 17
--- NOTE | 2018-07-09 18:54 | PN ---
Date/Time of Note Date/Time of Note DATE: 07/09/18 TIME: 18:52 OB Subjective Subjective Subjective Breast-feeding. Reports decreased vaginal bleeding. Urinated. Denies any s hortness of breath or chest pain. Denies any dizziness or lightheadedness. Breast-feeding. OB Objective Objective Objective General appearance: Vitals are noted x4 does not appear to be in any acute distress Abdomen: Soft, fundus palpable at the level of umbilicus nontender Extremities: No calf test, no click no edema no cord palpable Lungs: Clear to auscultation bilaterally CV: RRR VS - Last 72 Hours, by Label Date Temp Pulse Resp B/P (MAP) Pulse Ox O2 O2 Flow FiO2 Time Delivery Rate 07/09/18 98.4 69 17 114/80 Room Air 15:47 (91) 07/09/18 98.3 85 17 104/60 Room Air 08:30 (75) 07/09/18 98.0 62 18 113/71 Room Air 03:30 (85) 07/08/18 97.5 68 20 92/62 (72) Room Air 19:30 07/08/18 98.5 58 16 100/61 15:30 (74) 07/08/18 98.2 62 17 94/58 (70) Room Air 11:39 07/08/18 98.6 60 19 117/71 Room Air 08:20 (86) 07/08/18 60 18 132/86 Room Air 06:00 (101) 07/08/18 97.8 65 19 141/83 Room Air 05:00 (102) Laboratory Tests Test 07/08/18 02:42 07/08/18 02:45 07/08/18 02:47 07/08/18 04:00 Fibrinogen 230.0 mg/dl White Blood 8.3 10^3/ul Count Red Blood Count 3.70 10^6/ul Hemoglobin 8.5 g/dl Hematocrit 29.1 % Mean Corpuscular 78.6 fl Volume Mean Corpuscular 23.0 pg Hemoglobin Mean Corpuscular 29.2 g/dl Hemoglobin Kandy nt Red Cell 18.7 % Distribution Width Platelet Count 139 10^3/UL Mean Platelet 9.9 fl Volume Immature 2.200 % Granulocytes % Neutrophils % 54.0 % Lymphocytes % 36.7 % Monocytes % 5.8 % Eosinophils % 0.5 % Basophils % 0.8 % Nucleated Red 5.0 /100WBC Blood Cells % Immature 0.180 10^3/ul Granulocytes # Neutrophils # 4.5 10^3/ul Lymphocytes # 3.0 10^3/ul Monocytes # 0.5 10^3/ul Eosinophils # 0.0 10^3/ul Basophils # 0.1 10^3/ul Nucleated Red 0.4 10^3/ul Blood Cells # Prothrombin Time 12.5 Sec Prothrombin Time 1.0 Ratio INR 0.92 International Normalized Ratio Activated 33.1 Sec Partial Thrombop last Time Rapid Plasma NONREACTIVE Reagin Hepatitis B NEGATIVE Surface Antigen Bedside Glucose 84 mg/dL Urine Opiates Negative Screen Urine Negative Barbiturates Urine Negative Amphetamines Screen Urine Negative Benzodiazepines Screen Urine Cocaine Negative Screen Urine Negative Cannabinoids Test 07/09/18 06:15 07/09/18 06:44 Lab Scanned REFERENCE Report LAB [id number] White Blood 10.6 10^3/ul Count Red Blood Count 3.50 10^6/ul Hemoglobin 8.3 g/dl Hematocrit 27.8 % Mean Corpuscular 79.4 fl Volume Mean Corpuscular 23.7 pg Hemoglobin Mean Corpuscular 29.9 g/dl Hemoglobin Kandy nt Red Cell 18.8 % Distribution Width Platelet Count 164 10^3/UL Mean Platelet 10.8 fl Volume Immature 2.100 % Granulocytes % Neutrophils % 60.0 % Lymphocytes % 28.9 % Monocytes % 7.3 % Eosinophils % 0.8 % Basophils % 0.9 % Nucleated Red 4.0 /100WBC Blood Cells % Immature 0.220 10^3/ul Granulocytes # Neutrophils # 6.4 10^3/ul Lymphocytes # 3.1 10^3/ul Monocytes # 0.8 10^3/ul Eosinophils # 0.1 10^3/ul Basophils # 0.1 10^3/ul Nucleated Red 0.4 10^3/ul Blood Cells # OB Assessment/Plan Other Assessment: Status post day #1 Mild anemia, , asymptomatic Doing well routine check Start iron twice a day with stool softener Anticipate DC home tomorrow PAU WATKINS MD July 09, 2018 18:54
[2018-07-09 20:00] VITALS: BP 97/64; PULSE 68; RESP 18
[2018-07-10 03:56] VITALS: BP 98/57; PULSE 67; RESP 18
[2018-07-10] MEDS: LACTATED RINGER'S 1,000 ML IV* SCH (05:06)
[2018-07-10] MEDS: IBUPROFEN 600 MG TAB PO SCH ×2 (06:14→12:32)
[2018-07-10 08:00] VITALS: BP 103/65; PULSE 70; RESP 18
[2018-07-10] MEDS ORDERED: DIPHTH/TET/ACEL PERTUSS (ADULT) 0.5 ML VIAL IM* ONE (09:00)
[2018-07-10] MEDS: FERROUS SULFATE (EC) 325 MG TAB PO SCH ×2 (10:07→13:00)
[2018-07-10] MEDS: SENNA/DOCUSATE NA (8.6MG/50MG) TAB PO SCH (10:07)
--- NOTE | 2018-07-10 10:21 | PD.PPDC ---
MUTUAL FUND MANAGER Discharge Instruction Diagnosis [id number] Final Diagnosis: Ztzsq2u S/P Condition [id number] Patient Condition: Ovaby6e Stable Diet [id number] Diet: Smwla0d Resume Regular Diet Activity/Restrictions [id number] Activity: Ywclt2h May Shower [id number] Restrictions: Zryep1d No Sexual Activity Nothing in the Vagina No [place] No Tampons, douche Wound/Drain Care Instructions [id number] Wound/Drain Care Myyns3b Remove Steri Strips in 1 week Instructions: Follow-up Follow-up with Physician: 2, Week/Weeks Return to clinic for [id number] GAS MASK INSPECTOR Instructions: Gnsdf1r Fever greater than 101 Chills Worsening abdominal pain Excessive Vaginal Bleeding More than 2 pads per hour Unable to tolerate diet [id number] OB Instructions: Qlqyh4g Breast Tenderness Depression Blurried Vision Headache SVETLANA CALLAWAY MD July 10, 2018 10:21
--- NOTE | 2018-07-10 10:25 | DS ---
Date/Time of Note Date/Time of Note DATE: 07/10/18 TIME: 10:23 Obstetrical Discharge Record Final Diagnosis Final Diagnosis: Term delivered Vaginal Delivery Obstetrical Delivery: Spontaneous Complications Augmentation: No Induction: No Rupture of Membranes: No Condition on Discharge Physical Assessment Last Vitals: VSS afebrle Voiding: Yes Bowel Movement: Yes Breast: Soft, non-tender Fundus: Firm Calf Tenderness: No Patient Condition: Stable SVETLANA CALLAWAY MD July 10, 2018 10:25
[2018-07-10 15:30] VITALS: BP 103/70; PULSE 68; RESP 18
--- NOTE | 2018-07-11 17:28 | DELSUM ---
Delivery Summary A-C Datetime Report Generated by CPN: 07/11/2018 17:28 DELIVERY PERSONNEL Heel Trimmer: Kimmy Ventura MATERNAL INFORMATION Delivery Anesthesia: None Medications in Delivery: 30 UNITS PITOCIN IN 500ML LR Delivery QBL (ml): 200 Placenta Cultured: Yes Maternal Complications: None LABOR SUMMARY EDC: 07/29/2018 00:00 No. Babies in Womb: 1 Attempted: No Labor Anesthesia: None LABOR INFORMATION Reason for Induction: Not Applicable Onset of Labor: 07/07/2018 22:00 Complete Dilatation: 07/08/2018 03:30 Oxytocin: N/A Group B Beta Strep: Not Done Antibiotics # of Doses: X1 AMP 2G Antibiotics Time of Last Dose: 07/08/2018 02:34 Steroids Given: None Reason Steroids Not Administered: Not Applicable MEMBRANES Membranes Rupture Method: Spontaneous Rupture of Membranes: 07/08/2018 03:30 Length of Rupture (hr): 0.07 Amniotic Fluid Color: Clear Amniotic Fluid Amount: Moderate Amniotic Fluid Odor: None STAGES OF LABOR Stage 1 hr: 5 Stage 1 min: 30 Stage 2 hr: 0 Stage 2 min: 4 Stage 3 hr: 0 Stage 3 min: 5 Total Time in Labor hr: 5 Total Time in Labor min: 39 VAGINAL DELIVERY Episiotomy: None Laceration Extension: N/A Laceration Type: None Laceration Repair: Not Applicable Initial Vag Sponge Count: 10 Final Vag Sponge Count: 10 Initial Vag Sharps Count: 1 Final Vag Sharps Count: 1 Sponge Count Correct: Yes; Vaginal Sweep Performed Sharps Count Correct: Yes BABY A INFORMATION Delivery Date/Time: 07/08/2018 03:34 Method of Delivery: Vaginal Born in Route : No : N/A Forceps: N/A Vacuum Extraction: N/A Shoulder Dystocia : N/A SHOULDER DYSTOCIA BABY A Infant Delivery Date/Time: 07/08/2018 03:34 PRESENTATION/POSITION BABY A Presentation: Cephalic Cephalic Presentation: Vertex Vertex Position: Right Occipital Anterior Breech Presentation: N/A PLACENTA INFORMATION BABY A Placenta Delivery Time : 07/08/2018 03:39 Placenta Method of Delivery: Spontaneous Placenta Status: Delivered SCORES BABY A Heart Rate 1 min: >100 bpm Resp Effort 1 min: Good Cry Reflex Irritability 1 min: Cough/Sneeze/Pulls Away Muscle Tone 1 min: Active Motion Color 1 min: Blue/Pale Resuscitation Effort 1 min: Tactile Stimulation SCORE 1 MIN: 8 Heart Rate 5 min: >100 bpm Resp Effort 5 min: Good Cry Reflex Irritability 5 min: Cough/Sneeze/Pulls Away Muscle Tone 5 min: Some Flexion of Extrem Color 5 min: Body Mounds, Extremit Blue Resuscitation Effort 5 min: Tactile Stimulation; Oxygen SCORE 5 MIN: 8 INFORMATION BABY A Gestational Age at Delivery: 37.0 Gestational Status: Early Term- 37- 38.6 Weeks Outcome : Liveborn Infant Condition : Stable Infant Sex: Female IDENTIFICATION/MEDS BABY A ID Band Number: [id number] ID Band Location: Right Leg; Left Arm Sensor Applied: No Sensor Number: [id number] Sensor Location : Cord Clamp Vitamin K Given : Not Given Erythromycin Given: Not Given WEIGHT/LENGTH BABY A Birthweight (gm): 2940 Weight (lb): 6 Weight (oz): 8 Infant Length (in): 18.50 Length (cm): 46.99 CORD INFORMATION BABY A No. Cord Vessels: 3 Nuchal Cord : N/A Cord Blood Taken: Yes Infant Suction: Mouth; Nose ASSESSMENT BABY A Complications: None Physical Findings at Delivery: Within Normal Limits Respirations: Grunting Executive Chef/ALS Called : Yes Infant Care By: JOVITA/RT/PUMP ATTENDANT Transferred To: NICU
== END 2018-07-10 17:28 | disposition home or self-care (01) | DRG 807 ==
LOC: OBT 02:12 → L-D 02:12 → OBT 02:16 → PP1 04:57
PROVIDERS: ADMIT Obstetrics & Gynecology; ATTEND Obstetrics & Gynecology
PROC: 10E0XZZ Delivery of Products of Conception, External Approach (ICD-10-PCS; principal; 2018-07-08)
DX: O24.429 Gestational diabetes mellitus in childbirth, unspecified control (principal); Z37.0 Single live birth; O90.81 Anemia of the puerperium; D64.9 Anemia, unspecified; Z3A.37 37 weeks gestation of pregnancy
CPT/HCPCS: 76815; 80307; 82962; 85025; 85384; 85610; 85730; 86592; 86850; 86900; 86901; 87340; 88307; 99464; G0463; J0290; J2210; J2590; J7120